=== PATIENT | male | born 1935 | race Caucasian/White ===

== ENCOUNTER → 2023-05-14 | Emergency (ER) | payer OTHER ==
[~2023-05-14] MED LIST: FENTANYL CITR 100 MCG/2 ML ONE; KETOROLAC 30 MG/ML INJ ONE; dexAMETHasone 10 MG/ML VIAL ONE
[2023-05-14 10:54] LABS: Protime INR 1.2
[2023-05-14 11:10] LABS: Albumin 3.2 g/dL (3.4-5.0); Bilirubin Direct 0.4 mg/dL (0-0.2); Bilirubin Indirect, Calculated 0.5 mg/dL (0.2-0.8); Bilirubin Total 0.9 mg/dL (0.2-1.0); Magnesium 2.2 mg/dL (1.6-2.4); Potassium 3.7 mEq/L (3.5-5.1); Protein, Total 6.2 g/dL (6.4-8.2)
[2023-05-14 11:15] LABS: Hematocrit 38.8 % (39.6-49.0); Lymphocytes % 15.7 % (15.3-44.8); MCV 94.2 fL (80-100); MPV 8.1 fL (7.6-11.3); Platelets 278 thou/uL (152-406); RBC Red Blood Cell Count 4.12 M/uL (4.33-5.43)
[2023-05-14 12:32] LABS: Specific Gravity 1.009 (1.005-1.030); Urine Bacteria None Seen /HPF (<20); Urine Bilirubin NEGATIVE (Negative); Urine Blood Negative (Negative); Urine Clarity Turbid (Clear); Urine Color Light-Yellow (Yellow); Urine Glucose NEGATIVE (Negative); Urine Mucus Slight /HPF (None Seen); Urine Protein NEGATIVE (Negative); Urine RBC <5 /HPF (None Seen); Urine Urobilinogen Normal (Normal)
--- NOTE | 2023-05-14 13:38 | RAD REPORT ---
EXAM DESCRIPTION: CT - Abdomen Pelvis W Contrast - 05/14/2023 1:10 pm CLINICAL HISTORY: Abdominal pain COMPARISON: none. TECHNIQUE: Computed axial tomography of the abdomen pelvis was obtained. 100 cc Isovue-300 was admin istered intravenously. Oral contrast was not requested which limits evaluation of bowel and appendix All CT scans are performed using dose optimization technique as appropriate and may include automated exposure control or mA/KV adjustment according to patient size. FINDINGS: Tiny hepatic cyst. Spleen, pancreas and kidneys unremarkable. Mild fullness adrenal glands may represent hyperplasia. There is no evidence of diverticulitis. Bladder wall thickening. Prostate gland mildly to moderately enlarged containing calcification No evidence diverticulitis. Equivocal small lucency L3 vertebral body. Vague sclerosis left sacrum. 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
--- NOTE | 2023-05-14 13:40 | RAD REPORT ---
EXAM DESCRIPTION: CT - Chest For Pe Angio - 05/14/2023 1:10 pm CLINICAL HISTORY: Chest pain COMPARISON: None. TECHNIQUE: Dynamically enhanced axial 3 mm thick images of the chest were obtained during administra tion of 100 mL Isovue 370 IV contrast. Coronal and oblique reconstruction images were generated and r eviewed. Exam utilizes a protocol for optimal evaluation of pulmonary arterial tree. Maximum intensity projections 3D imaging was utilized All CT scans are performed using dose optimization technique as appropriate and may include automated exposure control or mA/KV adjustment according to patient size. FINDINGS: A pulmonary embolus is not seen. A thoracic aortic aneurysm is not noted. A pleural effusion is not seen. A pericardial effusion is not seen. 4 centimeter right upper lobe mass abuts fissure. Lytic lesions involve to mid thoracic vertebral bodies. Small sternal lesion IMPRESSION: Negative for a pulmonary embolism. 4 centimeter right upper lobe mass probably neoplasm.
--- NOTE | 2023-05-14 13:41 | RAD REPORT ---
EXAM DESCRIPTION: Angelique Single View05/14/2023 11:23 am CLINICAL HISTORY: Chest pain COMPARISON: 2016 FINDINGS: 4 centimeter right upper lobe mass. The remainder of the lungs appear clear of acute infiltrate. The heart is mildly enlarged. Pacemaker leads in place IMPRESSION: 4 centimeter right upper lobe mass probably neoplasm
--- NOTE | 2023-05-14 14:21 | ER ---
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 nj1 Coronavirus screen: Vaccine status: Patient reports being unvaccinated. Ebola Screen: Patient denies travel to an Ebola-affected area in the 21 days before illness onset. Initial Sepsis Screen: Does the patient meet any 2 criteria? No. Patient's initial sepsis screen is negative. Does the patient have a suspected source of infection? No. Patient's initial sepsis screen is negative. Risk Assessment: Do you want to hurt yourself or someone else? Patient reports no desire to harm self or others. Onset of symptoms was April 20, 2023. 10:19 Method Of Arrival: Wheelchair nj1 10:19 Acuity: KARTIK 3 nj1 Historical: - Allergies: 10:20 No Known Allergies; nj1 - PMHx: 10:20 Hyperlipidemia; Glaucoma; nj1 - Immunization history:: Client reports having NOT received the Covid vaccine. - Social history:: Smoking status: Patient denies any tobacco usage or history of. - Family history:: not pertinent. Screenin:58 [facility] ED Fall Risk Assessment (Adult) Score/Fall Risk Level 0 - 2 = Low Risk ll1 Oriented to surroundings, Maintained a safe environment, Educated pt \T\ family on fall prevention, incl call for assistance when getting out of bed, Hourly rounding (assess needs \T\ fall precautionary measures) done. Abuse screen: Denies threats or abuse. Nutritional screening: No deficits noted. Tuberculosis screening: No symptoms or risk factors identified. Assessment: 10:58 General: Appears uncomfortable, Behavior is calm, cooperative, appropriate for age. ll1 Pain: Complains of pain in back Quality of pain is described as aching. Neuro: No deficits noted. Level of Consciousness is awake, alert, obeys commands. Respiratory: Reports shortness of breath labored breathing. Musculoskeletal: Circulation, motion, and sensation intact. Capillary refill < 3 seconds, Reports pain in back. 11:30 Reassessment: No changes from previously documented assessment. Patient and/or family ll1 updated on plan of care and expected duration. Pain level reassessed. Patient is alert, oriented x 3, equal unlabored respirations, skin warm/dry/pink. 12:28 Reassessment: No changes from previously documented assessment. Patient and/or family tl4 updated on plan of care and expected duration. Pain level reassessed. Patient is alert, oriented x 3, equal unlabored respirations, skin warm/dry/pink. 13:26 Reassessment: No changes from previously documented assessment. Patient and/or family tl4 updated on plan of care and expected duration. Pain level reassessed. Patient is alert, oriented x 3, equal unlabored respirations, skin warm/dry/pink. 14:50 Reassessment: No changes from previously documented assessment. Patient and/or family tl4 updated on plan of care and expected duration. Pain level reassessed. Patient is alert, oriented x 3, equal unlabored respirations, skin warm/dry/pink. Pt incontinent of urine, cleaned and new brief applied. Pt covered with warm blankets. Pt has questions for provider. Pt denies any other needs at this time. Vital Signs: 10:19 BP 160 / 95; Pulse 70; Resp 20; Temp 97.9(O); Pulse Ox 100% on R/A; Weight 70.31 kg nj1 (R); Height 6 ft. 0 in. ; 11:30 BP 165 / 95; Pulse 60; Resp 18; Pulse Ox 99% on R/A; ll1 12:28 BP 190 / 72; Pulse 66; Resp 20; Pulse Ox 97% on R/A; Pain 5/10; tl4 13:28 BP 219 / 77; Pulse 65; Resp 18; Pulse Ox 99% on R/A; tl4 14:52 BP 180 / 85; Pulse 64; Resp 18; Pulse Ox 100% on R/A; tl4 15:49 BP 168 / 72; Pulse 66; Resp 20; Pulse Ox 97% on R/A; Pain 4/10; tl4 10:19 Body Mass Index 21.02 (70.31 kg, 182.88 cm) nj1 12:28 Pain Scale: Adult tl4 15:49 Pain Scale: Adult tl4 Vitals: 13:28 Cardiac Rhythm Assessment Regular. tl4 [place] Coma Score: 13:28 Eye Response: spontaneous(4). Motor Response: obeys commands(6). Verbal Response: tl4 oriented(5). Total: 15. 15:49 Eye Response: spontaneous(4). Motor Response: obeys commands(6). Verbal Response: tl4 oriented(5). Total: 15. ED Course: 10:10 Patient arrived in ED. rg4 10:10 Jose M Norris MD is Private Physician. rg4 10:20 Vlad Goff MD is Attending Physician. evie 10:20 Triage completed. nj1 10:21 Arm band placed on right wrist. nj1 10:38 Missed attempt(s): 20 gauge in right forearm. Bleeding controlled, band aid applied, ll1 catheter tip intact. 10:38 Missed attempt(s): 22 gauge in right antecubital area. Bleeding controlled, band aid ll1 applied, catheter tip intact. 10:39 Samantha Navarrete, RN is Primary Nurse. ll1 10:45 Inserted saline lock: 20 gauge in left forearm, using aseptic technique. Blood ll1 collected. 10:58 Patient has correct armband on for positive identification. Bed in low position. Call ll1 light in reach. Side rails up X 1. Provided Education on: ER procedures and process. Client placed on continuous cardiac and pulse oximetry monitoring. NIBP monitoring applied. cardiac monitor technician on. 11:24 XRAY Chest (1 view) In Process Unspecified. EDMS 12:17 Urinalysis w/ reflexes Sent. tl4 13:12 CT Chest For PE Angio In Process Unspecified. EDMS 13:12 CT Abd/Pelvis - IV Contrast Only In Process Unspecified. EDMS 13:29 No provider procedures requiring assistance completed. tl4 13:30 Pt incontinent of urine. Pt cleaned and new brief applied. Pt covered with warm tl4 blankets. Pt denies any additional needs at this time. Will continue to monitor. 14:17 Jose M Norris MD is Referral Physician. evie 14:19 Anne Bautista MD is Referral Physician. evie 14:20 Dmitry Rey MD is Referral Physician. evie 15:51 IV discontinued, intact, bleeding controlled, No redness/swelling at site. Pressure tl4 dressing applied. Administered Medications: 12:01 Drug: Decadron - Dexamethasone IVP 10 mg IVP once Route: IVP; Site: left forearm; ll1 13:07 Follow up: Response: No adverse reaction tl4 12:01 Drug: Ketorolac IVP 15 mg IVP once Route: IVP; Site: left forearm; ll1 13:07 Follow up: Response: Pain is decreased tl4 12:02 Drug: fentaNYL (PF) IVP 25 mcg IVP once Route: IVP; Site: left forearm; ll1 13:06 Follow up: Response: Pain is decreased tl4 15:48 Not Given (Patient Refused; Pt states he does not need additional pain medicationn): tl4 fentanyl (pf)25 mcg IVP once Medication: 10:58 VIS not applicable for this client. ll1 Outcome: 14:20 Discharge ordered by . [facility] 15:51 Discharged to home via wheelchair, with family, tl4 15:51 Condition: stable 15:51 Discharge instructions given to patient, Instructed on discharge instructions, follow up and referral plans. medication usage, Demonstrated understanding of instructions, follow-up care, medications, Prescriptions given X 4, 15:52 Patient left the ED. tl4 Signatures: Dispatcher [employer] Vlad Young MD MD cha Garcia, Tanvi rg4 Samantha Navarrete RN RN ll1 Manuela Armstrong RN RN nj1 Sean Aranda RN RN tl4
--- NOTE | 2023-05-14 14:21 | EDPHYS ---
Physician Documentation [facility] Name: Sebastian Crowell Age: 87 yrs Sex: Male : 1935 Arrival Date: 05/14/2023 Time: 10:06 Bed 6 Private MD: Jose M Norris V ED Physician Vlad Goff HPI: 05/14 11:36 This 87 yrs old Male presents to ER via Wheelchair with complaints of Back evie Pain, Breathing Difficulty. 11:36 The patient presents with pain that is acute, and decreased range of motion. The evie symptoms are located in the left subscapular area, right subscapular area, left low back, left mid back, right mid back and right low back. Onset: The symptoms/episode began/occurred 25 day(s) ago. The pain does not radiate. Associated signs and symptoms: Pertinent positives:. The problem was sustained from unknown cause. Modifying factors: The patient symptoms are alleviated by remaining still, the patient symptoms are aggravated by any movement, bending, coughing, walking. Severity of symptoms: At their worst the symptoms were moderate, in the emergency department the symptoms are unchanged. The patient has not experienced similar symptoms in the past. Historical: - Allergies: 10:20 No Known Allergies; nj1 - PMHx: 10:20 Hyperlipidemia; Glaucoma; nj1 - Immunization history:: Client reports having NOT received the Covid vaccine. - Social history:: Smoking status: Patient denies any tobacco usage or history of. - Family history:: not pertinent. ROS: 11:36 Constitutional: Negative for fever, chills, and weight loss, Eyes: Negative for injury, evie pain, redness, and discharge, ENT: Negative for injury, pain, and discharge, Neck: Negative for injury, pain, and swelling, Cardiovascular: Negative for chest pain, palpitations, and edema, Respiratory: Negative for shortness of breath, cough, wheezing, and pleuritic chest pain, Abdomen/GI: Negative for abdominal pain, nausea, vomiting, diarrhea, and constipation, : Negative for injury, bleeding, discharge, and swelling, MS/Extremity: Negative for injury and deformity, Skin: Negative for injury, rash, and discoloration, Neuro: Negative for headache, weakness, numbness, tingling, and seizure, Psych: Negative for depression, anxiety, suicide ideation, homicidal ideation, and hallucinations, Allergy/Immunology: Negative for hives, rash, and allergies, Endocrine: Negative for neck swelling, polydipsia, polyuria, polyphagia, and marked weight changes, Hematologic/Lymphatic: Negative for swollen nodes, abnormal bleeding, and unusual bruising, 11:36 Back: Positive for decreased range of motion, pain at rest, pain with movement, of the left subscapular area, right subscapular area, left low back, left mid back, right mid back and right low back, Exam: 11:36 Constitutional: This is a well developed, well nourished patient who is awake, alert, evie and in no acute distress. Head/Face: Normocephalic, atraumatic. Eyes: Pupils equal round and reactive to light, extra-ocular motions intact. Lids and lashes normal. Conjunctiva and sclera are non-icteric and not injected. Cornea within normal limits. Periorbital areas with no swelling, redness, or edema. ENT: Nares patent. No nasal discharge, no septal abnormalities noted. Tympanic membranes are normal and external auditory canals are clear. Oropharynx with no redness, swelling, or masses, exudates, or evidence of obstruction, uvula midline. Mucous membranes moist. Neck: Trachea midline, no thyromegaly or masses palpated, and no cervical lymphadenopathy. Supple, full range of motion without nuchal rigidity, or vertebral point tenderness. No Meningismus. Chest/axilla: Normal chest wall appearance and motion. Nontender with no deformity. No lesions are appreciated. Cardiovascular: Regular rate and rhythm with a normal S1 and S2. No gallops, murmurs, or rubs. Normal PMI, no JVD. No pulse deficits. Respiratory: Lungs have equal breath sounds bilaterally, clear to auscultation and percussion. No rales, rhonchi or wheezes noted. No increased work of breathing, no retractions or nasal flaring. Abdomen/GI: Soft, non-tender, with normal bowel sounds. No distension or tympany. No guarding or rebound. No evidence of tenderness throughout. Skin: Warm, dry with normal turgor. Normal color with no rashes, no lesions, and no evidence of cellulitis. MS/ Extremity: Pulses equal, no cyanosis. Neurovascular intact. Full, normal range of motion. Neuro: Awake and alert, GCS 15, oriented to person, place, time, and situation. Cranial nerves II-XII grossly intact. Motor strength 5/5 in all extremities. Sensory grossly intact. Cerebellar exam normal. Normal gait. Psych: Awake, alert, with orientation to person, place and time. Behavior, mood, and affect are within normal limits. 11:36 ECG was reviewed by the Attending Physician. Vital Signs: 10:19 BP 160 / 95; Pulse 70; Resp 20; Temp 97.9(O); Pulse Ox 100% on R/A; Weight 70.31 kg nj1 (R); Height 6 ft. 0 in. ; 11:30 BP 165 / 95; Pulse 60; Resp 18; Pulse Ox 99% on R/A; ll1 12:28 BP 190 / 72; Pulse 66; Resp 20; Pulse Ox 97% on R/A; Pain 5/10; tl4 13:28 BP 219 / 77; Pulse 65; Resp 18; Pulse Ox 99% on R/A; tl4 14:52 BP 180 / 85; Pulse 64; Resp 18; Pulse Ox 100% on R/A; tl4 15:49 BP 168 / 72; Pulse 66; Resp 20; Pulse Ox 97% on R/A; Pain 4/10; tl4 10:19 Body Mass Index 21.02 (70.31 kg, 182.88 cm) nj1 12:28 Pain Scale: Adult tl4 15:49 Pain Scale: Adult tl4 [place] Coma Score: 13:28 Eye Response: spontaneous(4). Motor Response: obeys commands(6). Verbal Response: tl4 oriented(5). Total: 15. 15:49 Eye Response: spontaneous(4). Motor Response: obeys commands(6). Verbal Response: tl4 oriented(5). Total: 15. MDM: 10:20 Patient medically screened. evie 11:40 Differential diagnosis: Abdominal Aortic Aneurysm arthritis, Cholelithiasis chronic evie back pain, Hydronephrosis Neoplasm Osteoarthritis Osteomalacia Osteoporosis Pyelonephritis Renal Infarction ruptured disc, sprain, Ureterolithiasis. Data reviewed: vital signs, nurses notes, lab test result(s), EKG, radiologic studies, CT scan, plain films. Consideration of Admission/Observation Escalation of care including admission/observation considered. I considered the following discharge prescriptions or medication management in the emergency department Medications were administered in the Emergency Department. See MAR. Independent interpretation of the following test(s) in the Emergency Department EKG: See my EKG interpretation above. Test considered but Not performed: MRI: NO MRI SPINE. Historians other than the Patient: PT WILL INFORMED. Care significantly affected by the following chronic conditions: HYPERLIPIDEMIA. Counseling: I had a detailed discussion with the patient and/or guardian regarding the historical points, exam findings, and any diagnostic results supporting the discharge/admit diagnosis, lab results, radiology results. 05/14 10:20 Order name: Basic Metabolic Panel; Complete Time: 05/14 10:20 Order name: CBC with Diff; Complete Time: 05/14 10:20 Order name: LFT's; Complete Time: 05/14 10:20 Order name: Magnesium; Complete Time: 05/14 10:20 Order name: NT PRO-BNP; Complete Time: 05/14 10:20 Order name: PT-INR; Complete Time: 05/14 10:20 Order name: Troponin HS; Complete Time: 05/14 10:20 Order name: Lipase; Complete Time: 05/14 11:36 Order name: Urinalysis w/ reflexes; Complete Time: 14:05/14 10:20 Order name: XRAY Chest (1 view); Complete Time: 14:05/14 11:36 Order name: CT Chest For PE Angio; Complete Time: 14:05/14 11:36 Order name: CT Abd/Pelvis - IV Contrast Only; Complete Time: 14:05/14 10:20 Order name: EKG; Complete Time: 10:05/14 10:20 Order name: Cardiac monitoring; Complete Time: :05/14 10:20 Order name: EKG - Nurse/Tech; Complete Time: 05/14 10:20 Order name: IV Saline Lock; Complete Time: 05/14 10:20 Order name: Labs collected and sent; Complete Time: :05/14 10:20 Order name: O2 Per Protocol; Complete Time: :05/14 10:20 Order name: O2 Sat Monitoring; Complete Time: 10:29 evie EC:36 Rate is 61 beats/min. Rhythm is regular. QRS [place] is Normal. [place] interval is normal. QRS evie interval is normal. QT interval is normal. No Q waves. T waves are Normal. No ST changes noted. Clinical impression: NSR w/ Non-specific ST/T Changes and No evidence of ischemia. Interpreted by me. Reviewed by me. Administered Medications: 12:01 Drug: Decadron - Dexamethasone IVP 10 mg IVP once Route: IVP; Site: left forearm; ll1 13:07 Follow up: Response: No adverse reaction tl4 12:01 Drug: Ketorolac IVP 15 mg IVP once Route: IVP; Site: left forearm; ll1 13:07 Follow up: Response: Pain is decreased tl4 12:02 Drug: fentaNYL (PF) IVP 25 mcg IVP once Route: IVP; Site: left forearm; ll1 13:06 Follow up: Response: Pain is decreased tl4 15:48 Not Given (Patient Refused; Pt states he does not need additional pain medicationn): tl4 fentanyl (pf)25 mcg IVP once Disposition Summary: 05/14/23 14:20 Discharge Ordered Notes: Location: Home evie Problem: new evie Symptoms: have improved evie Condition: Stable evie Diagnosis - Unspecified symptoms and signs involving the musculoskeletal system evie - Low back pain evie - Malignant neoplasm of lower lobe, right bronchus or lung - 4 cm right upper lung evie with spine metastasis - Pain in thoracic spine - secondary lung cancer metastasis evie Followup: evie - With: Jose M Norris MD - When: 2 - 3 days - Reason: Recheck today's complaints, Continuance of care, Re-evaluation by your physician Followup: evie - With: Anne Bautista MD - When: 2 - 3 days - Reason: Recheck today's complaints, Re-evaluation by your physician Followup: evie - With: Dmitry Rey MD - When: 2 - 3 days - Reason: Recheck today's complaints, Re-evaluation by your physician Discharge Instructions: - Discharge Summary Sheet evie - Acute Back Pain, Adult evie - Chronic Back Pain evie - Musculoskeletal Pain evie - Back Injury Prevention, [id number] evie - Bone Metastasis evie - Lung Cancer evie - Metastatic Cancer evie Forms: - Medication Reconciliation Form evie - Thank You Letter evie - Antibiotic Education evie - Prescription Opioid Use [place] - Patient Portal Instructions [place] - Leadership Thank You Letter [place] Prescriptions: - acetaminophen-codeine 300-30 mg Oral tablet - take 1 tablet ORAL route every 4-6 hours; 20 tablet; Refills: 0, Product [place] Selection Permitted - diclofenac sodium 50 mg Oral tablet, delayed release (enteric coated) - take 1 tablet ORAL route every 12 hours; 20 tablet; Refills: 0, Product [place] Selection Permitted - Valium 2 mg Oral Tablet - take 1 tablet ORAL route every 8 hours As needed; 20 tablet; Refills: 0, [place] Product Selection Permitted - Medrol (Mario) 4 mg Oral Tablets, Dose Pack - take 1 tablet ORAL route as directed - follow package instructions; 1 packet; [place] Refills: 0, Product Selection Permitted Signatures: Dispatcher [employer] Vlad Young MD MD cha Lewis, Lynsay RN RN ll1 Manuela Armstrong RN RN nj1 [facility] tl4
[2023-05-14 16:26] VITALS: BP 168/72; TEMP 97.9; O2SAT 97
--- NOTE | 2023-05-15 14:31 | EKG ---
Test Date: 2023-05-14 Test Time: 10:48:02 [place]ibbler Operator: BIANCA MEASUREMENT RESULTS: Intervals: Rate: 61 NH: 146 QRSD: 92 QT: 414 QTc: 416 [place]: P: 40 NH: 146 QRS: 16 T: 15 INTERPRETIVE STATEMENTS: Electronic atrial pacemaker No previous ECG available for comparison Electronically Signed On 05-15-23 14:27:03 ASSISTANT CHIEF NURSING OFFICER by Blair Holland
== END ==
LOC: ER 10:06
DX: C34.91 Malignant neoplasm of unspecified part of right bronchus or lung (principal); C79.51 Secondary malignant neoplasm of bone; M54.50 Low back pain, unspecified; Z28.310 Unvaccinated for COVID-19
CPT/HCPCS: 93005; 85025; 81001; 80048; 36415; 83735; 85610; 80076; 84484; 83690; 83880; 71275; 74177; 71045; Q9967; J3010; J1100; 96374; 96375; 99285